=== PATIENT | male | born 1965 | race Caucasian/White ===

== ENCOUNTER 2017-11-22 06:59 | Inpatient (IN) | payer SELFPAY ==
[2017-11-22] VITALS (21 sets, daily range): BP systolic 64–119; BP diastolic 51–82
[~2017-11-22] VITALS: Ht 170.2 cm; Wt 82.6 kg
[~2017-11-22 06:59] MED LIST: ADLT ASA LOW81 MG PO; ATORVASTATIN CA40 MG PO; BAYER LOW81 MG OR; COREG3.125 MG OR; FIORICET OR; GLUCOPHAGE1000 MG OR; HYDROCO/APAP1 TA9 PO; LOPRESSOR25 MG PO; METFORMIN1000 MG PO; PLAVIX75 MG OR; PRILOSEC40 MG OR; TRIMOX500 MG PO; ULTRAM50 M1 PO; WARFARIN SODIUM5 MG PO; ZOCOR40 MG OR
--- NOTE | 2017-11-22 07:00 | NUR ---
PT AMBULATED TO TRIAGE. HR CHECKED, PT TAKEN IMMED TO ER ROOM 9 BY MD AMISHA IN ROOM. IV ESTABISHED. EKG COMPLETED.
--- NOTE | 2017-11-22 07:12 | NUR ---
PATIENT INFORMED OF ADENOSINE ORDER AND SIDE EFFECTS. VERBAL UNDERSTANDING, REPORTS HAVING MED BEFORE. O2 APPLIED AT 2L/MIN. 6 MG OF ADENOSINE GIVEN, TOLERATED WELL. MD AT BEDSIDE.
--- NOTE | 2017-11-22 07:31 | NUR ---
PATIENT INFORMED OF SHOCK BY MED, VERBAL UNDERSTANDING FROM PATIENT. PATIENT SHOCKED WITH 200 JOULES. PATIENT TOLERATED WELL. NO CHANGE IN RHYTHM.
--- NOTE | 2017-11-22 07:34 | NUR ---
PATIENT SHOCKED WITH [address]LES. RHY[address]ANGE TO [address] 125 BPM. PATIENT TOLERATED WELL. ALERT AND ORIENTED X3. WILL CONTINUE TO MONITOR.
[2017-11-22 08:04] LABS: HEMATOCRIT 45.7 % (39.0-50.0); HEMOGLOBIN 16.1 g/dl (14.0-18.0); IMMATURE GRANULOCYTES 0.4 % (0.0-1.0); MEAN CELL VOLUME 89.1 fL CALC (80.0-100.0); MEAN CORPUSCULAR HGB 31.4 pG CALC (26.0-32.0); MEAN CORPUSCULAR HGB CONC 35.2 g/L CALC (32.0-36.0); NEUT# 11.26 thou/uL (1.82-7.42); RED BLOOD COUNT 5.13 mill/uL (4.70-6.10); RED CELL DISTRI WIDTH 12.2 % (11.5-15.5)
--- NOTE | 2017-11-22 08:06 | NUR ---
PATIENT RESTING ON STRETCHER ALERT AND ORIENTED X3. REPORTS CHEST PAIN 2/10 AT THIS TIME. VSS. CALL LIGHT PLACED WITHIN REACH, WILL CONTINUE TO MONITOR.
[2017-11-22 08:14] LABS: INTERNATIONAL NORMALIZED RATIO 1.1 RATIO (0.7-1.3); PROTHROMBIN TIME 12.7 SECONDS (9.0-12.5)
[2017-11-22 08:16] LABS: ANION GAP 20 (6-22 (CALC)); BUN 5 mg/dL (9-20); BUN/CREATININE RATIO 6 (12-20 (CALC)); CARBON DIOXIDE 24 mmol/l (22-30); CHLORIDE 97 mmol/l (95-108); CREATININE 0.8 mg/dL (0.7-1.3); GFR > 60 ML/MIN (>=60 (CALC)); GFR FOR AFR.AMER. > 60 ML/MIN (>=60 (CALC)); SODIUM 138 mmol/l (137-146)
[2017-11-22] MEDS ORDERED: GLIPIZIDE5 MG PO (08:40)
[2017-11-22] MEDS ORDERED: METFORMIN500 MG PO (08:40)
[2017-11-22] MEDS ORDERED: COUMADIN5 MG PO (08:40)
--- NOTE | 2017-11-22 08:50 | NUR ---
AT BEDSIDE TO DISCUSS PLAN TO ADMIT.
--- NOTE | 2017-11-22 09:10 | NUR ---
DR. REID AT BEDSIDE.
--- NOTE | 2017-11-22 09:27 | NUR ---
MARISA MADE TO CALL REPORT, SPOKE TO Eric CASTANEDA, WILL CALL BACK NURSE IN PATIENT ROOM.
--- NOTE | 2017-11-22 09:59 | NUR ---
REPORT GIVEN TO TINY DUBON.
--- NOTE | 2017-11-22 10:25 | NUR ---
PATIENT TRANSPORTED TO ICU 1 WITH O2 AT 2L/MIN IN PLACE, UM SPECIALIST AND DRIP INFUSING- TO CONTINUE IN ICU. BEDSIDE REPORT GIVEN TO LING RN AND TINY SAMUEL. CARE RELINQUISHED.
--- NOTE | 2017-11-22 10:25 | NUR ---
PT ARRIVED TO FLOOR VIA STRETCHER, HAND OFF REPORT RECIEVED VIA BEST RN FROM ED. PT ALERTX3, ABLE TO MAKE NEEDS KNOWN. PT WITH 18G TO RAC WITH IVF AT 100ML/HR AND HEPARIN DRIP @ 950UNITS/HR. 20G WITH K+ @50ML/HR. NO S/S OF INFILTRATE OR REDNESS NOTED AT THIS TIME. PT DENIES CHEST PAIN OR SOB AT THIS TIME. [id number]% ON 02@2LPM VIA N/C. LS CLEAR THROUGHOUT, HR IRREGULAR ON TELEMETRY. SKIN COLOR NO. BSX4 ACTIVE, PT STATES LAST BM 30-18 PRIOR TO COMING TO ER. PERIPHRIAL PULSES WEAK. PT ORIENTED TO UNIT, BED AND CALL LIGHT SYSTEM. PT VERBALIZED UNDERSTANDING. CALL LIGHT IN REACH, MONITORING.
--- NOTE | 2017-11-22 10:40 | NUR ---
PT C/O FEELING WARM, ATTEMPTING TO REMOVE SOCKS AND GOWN. PT BECOMING HYPOTENSIVE AND DIAPHORETIC, SEE TELEMETRY/VS. PT C/O OF PAIN TO R HAND IV SITE, K+ RATE CHANGED TO 25ML/HR. WILL MONITOR AT BS.
--- NOTE | 2017-11-22 10:45 | NUR ---
PT B/P CONFIRMED VIA MANUAL CUFF. IVF BOLUS OF 500ML STARTED. B/P 64/51. CALLED FOR EKG.MONITORING AT BS
--- NOTE | 2017-11-22 10:53 | NUR ---
DR. REID NOTIFIED OF PT CONDITION, VS CONTIUE TO BE UNSTABLE, PT PLACED IN [place] POSITION, EKG DONE. IVF SWITCHED TO R HAND AND K+ TO RAC FOR PT COMFORT. LAB DRAWN AT BS.CONTINUE TO MONITOR AT BS.
--- NOTE | 2017-11-22 11:05 | NUR ---
PT VERBALIZES, PAIN/BURNING TO R HAND DECREASING, PT REMAINS IN [place] POSITION. B/P INCREASING, PT CONTINUES TO DENY SOB AND CHEST PAIN AT THIS TIME. COLOR CONTINUES TO BE NO. PT REMAIN A&0X3, ABLE TO MAKE NEEDS KNOWN.
--- NOTE | 2017-11-22 11:15 | NUR ---
DR. REID AND DAVID LUCAS AT FOR ASSESMENT, ACCUCHECK 176, PT B/P CONTINUES TO ELEVATE, BUT REMAINS HYPOTENSIVE. SA02 95%ON 2LPM/NC. PT COLOR IMPROVING AND IS NO LONGER DIAPHORETIC. WILL CONTINUE TO MONITOR.
--- NOTE | 2017-11-22 11:20 | NUR ---
PT IV HEPARIN CONTINUED 950UNITS/HR. PT RESTING IN BED SUPINE, B/P 92/70. WILL MONITOR
--- NOTE | 2017-11-22 11:35 | NUR ---
IV K+ INFUSION COMPLETED, PT RESTING IN SUPINE POSITION, DENIES PAIN, SOB/CHEST PAIN AT THIS TIME. O2 CONTINUES @2LPM. CALL LIGHT IN REACH. WILL MONITOR.
--- NOTE | 2017-11-22 12:00 | NUR ---
PT NOTIFIED OF POSITIVE TROPONIN LEVEL AND ORDERS TO TRANSFER TO [facility]. PT VERBALIZED UNDERSTANDING. PT ASKED BY COUNTER HAND IF HE WOULD LIKE HIS DAUGHTER NOTIFIED. PT STATED "NO , NOT AT THIS TIME." pT THEN STATED HE WAS NOT SURE HE WANTED TO GO TO [facility] AT THIS TIME." HE WANTED TO THINK ABOUT IT." PT EDUCATED ABOUT THE RISKS OF ELEVATED TROPONIN LEVEL, PT VERBALIZES UNDERSTANDING OF THE RISKS AND CONTINUES TO STATE HE WANTS TO THINK ABOUT IT. PT. LEFT SITTING UP IN BED, BED IN LOWEST POSITION WITH CALL LIGHT IN REACH. WILL CONTINUE TO MONITOR.
--- NOTE | 2017-11-22 12:26 | NUR ---
1226- PT NOTED REMOVING PULSE OX MONITOR UPON ENTERING ROOM, PT STATED HE WAS JUST GOING TO FOLLOW UP WITH DR. BARKER IN 1 WEEK. aGAIN PT EDUCATED ON THE RISK OF LEAVING. PT VERBALIZED UNDERSTANDING AND STILL STATED HIS DESIRE TO LEAVE. 1230- DR. REID AND DAVID LUCAS AT BEDSIDE TO ASSESS AND [place] PT ON THE RISKS OF LEAVING IN UNSTABLE CONDITIONS. DR. REID STATED HE WOULD HOLD OFF ON TRANSFER AND ASKED PT TO STAY IN ICU HERE FOR FURTHER MONITORING, PT STATED HE WANTED TO THINK ON IT. 1236- PT STATED TO WEAPONS AND TACTICS INSTRUCTOR HE WOULD STAY UNTIL 2ND TROPONIN DRAWN AT [id number], THEN HE WAS GOING TO LEAVE. PT MONITORS REINSTATED, BED IN LOWEST POSITION, CALL LIGHT IN REACH. WILL CONTINUE TO MONITOR.
--- NOTE | 2017-11-22 14:00 | NUR ---
PT RESTING IN BED WITH EYES CLOSED, SR WITH OCCASIONAL PVC'S ON TELEMETRY. IV PATENT, NO S/S OF REDNESS OR INFILTRATION, NO S/S OF SOB OR DISTRESS NOTED AT THIS TIME. CALL LIGHT IN REACH. WILL MONITOR.
--- NOTE | 2017-11-22 15:10 | NUR ---
labor contractor at bedside; per script writer request, troponin obtained at this time (early) due to pt expressing wishes to leave; will continue to monitor
--- NOTE | 2017-11-22 15:49 | NUR ---
1549- TROPONIN LEVELS REPORTED TO , AND PT. PT ADVISED TO STAY AND EDUCATED ON THE HIGH RISKS INVOLVED WITH LEAVING. 1554- PT STARTED REMOVING MONITORING EQUIPMENT, IV SITE TO RAC & R HAND DISCONTINUED AFTER AMA SIGN BY PT. PT EDUCATED ON THE RISK OF SUDDEN , PT ADVISED TO RETURN TO ED WITH ANY CHANGE IN STATUS. THIS SENIOR TAX ANALYST ADVISED PT TO NOTIFY SOMEONE TO COME BE WITH HIM, HE STATED HE WOULD. 1555- PT LEFT ICU BED #1 AMA.
== END 2017-11-22 15:55 | disposition left against medical advice (07) | DRG 310 ==
LOC: ED 06:59 → ED-I 08:22 → ED 08:45 → ICU 08:46
PROVIDERS: Family Medicine; ADMIT Internal Medicine; ATTEND Internal Medicine
PROC: 5A2204Z Restoration of Cardiac Rhythm, Single (ICD-10-PCS; principal; 2017-11-22)
DX: I48.91 Unspecified atrial fibrillation (principal); E83.42 Hypomagnesemia; I48.92 Unspecified atrial flutter; E87.6 Hypokalemia; E11.9 Type 2 diabetes mellitus without complications; F17.210 Nicotine dependence, cigarettes, uncomplicated; I25.10 Atherosclerotic heart disease of native coronary artery without angina pectoris; R74.8 Abnormal levels of other serum enzymes; Z91.14 Patient's other noncompliance with medication regimen; Z95.5 Presence of coronary angioplasty implant and graft; Z79.01 Long term (current) use of anticoagulants
CPT/HCPCS: J2060

== ENCOUNTER 2018-03-11 19:14 | Inpatient (IN) | payer SELFPAY ==
[~2018-03-11] VITALS: Ht 170.2 cm; Wt 85.5 kg
[~2018-03-11 19:14] MED LIST changes: +COUMADIN5 MG PO; +GLIPIZIDE5 MG PO; +METFORMIN500 MG PO
[2018-03-11 19:51] LABS: HEMATOCRIT 46.2 % (39.0-50.0); HEMOGLOBIN 16.4 g/dl (14.0-18.0); IMMATURE GRANULOCYTES 0.4 % (0.0-5.0); MEAN CELL VOLUME 88.7 fL CALC (80.0-100.0); MEAN CORPUSCULAR HGB 31.5 pG CALC (26.0-32.0); MEAN CORPUSCULAR HGB CONC 35.5 g/L CALC (32.0-36.0); NEUT# 6.01 thou/uL (1.82-7.42); RED BLOOD COUNT 5.21 mill/uL (4.70-6.10); RED CELL DISTRI WIDTH 12.1 % (11.5-15.5)
[2018-03-11 20:09] LABS: ALKALINE PHOSPHATASE 114 u/l (38-126); BILIRUBIN, TOTAL 0.6 mg/dL (0.0-1.4); BUN 7 mg/dL (9-20); BUN/CREATININE RATIO 6 (12-20 (CALC)); CARBON DIOXIDE 23 mmol/l (22-30); CHLORIDE 94 mmol/l (95-108); CREATININE 1.1 mg/dL (0.7-1.3); ETHYL ALCOHOL 42 mg/dl (0-30); GFR > 60 ML/MIN (>=60 (CALC)); GFR FOR AFR.AMER. > 60 ML/MIN (>=60 (CALC)); SGPT/ALT 39 u/l (21-72); SODIUM 135 mmol/l (137-146); TOTAL PROTEIN 8.4 g/dL (6.3-8.2)
[2018-03-11 20:16] LABS: ANION GAP 22 (6-22 (CALC)); POTASSIUM 3.8 mmol/l (3.5-5.1); SGOT/AST 35 u/l (17-59)
[2018-03-11 20:17] LABS: ACT PARTIAL THROMBO TIME 27.5 SECONDS (20.0-32.5); D-DIMER 0.19 mg/L (0.19-0.60); INTERNATIONAL NORMALIZED RATIO 1.1 RATIO (0.7-1.3); PROTHROMBIN TIME 12.8 SECONDS (9.0-12.5)
[2018-03-11 20:20] LABS: MYOGLOBIN 85 ng/mL (0 - 121)
[2018-03-11 23:05] VITALS: BP 99/70
[2018-03-11 23:30] VITALS: BP 95/66
[2018-03-12] VITALS: BP 109/77
[2018-03-12] LABS: URINE BILIRUBIN - DIPSTICK NEGATIVE (NEGATIVE); URINE BLOOD DIPSTICK NEGATIVE (NEGATIVE); URINE COLOR YELLOW; URINE GLUCOSE - DIPSTICK >=1000 mg/dL (NEGATIVE); URINE KETONE NEGATIVE (NEGATIVE); URINE LEUK ESTERASE NEGATIVE (NEGATIVE); URINE NITRITE - DIPSTICK NEGATIVE (Negative); URINE PROTEIN - DIPSTICK TRACE mg/dL (NEG-TRACE); URINE SPECIFIC GRAVITY <=1.005; URINE UROBILINOGEN - DIPSTICK 0.2 E.U./dL (0.2)
[2018-03-12 00:01] LABS: BARBITURATES NEGATIVE (NEGATIVE); COCAINE POSITIVE (NEGATIVE); METHADONE NEGATIVE (NEGATIVE); OXCYCODONE NEGATIVE (NEGATIVE); TETRAHYDROCANNABIONOL NEGATIVE (NEGATIVE); TRICYLIC ANTIDEPRESSANTS NEGATIVE (NEGATIVE); URINE CLARITY CLEAR
[2018-03-12 01:00] VITALS: BP 116/68
[2018-03-12 02:00] VITALS: BP 102/70
[2018-03-12 03:00] VITALS: BP 103/68
[2018-03-12 04:00] VITALS: BP 97/61
[2018-03-12 05:00] VITALS: BP 97/61
[2018-03-12 05:39] LABS: HEMATOCRIT 38.7 % (39.0-50.0); HEMOGLOBIN 13.6 g/dl (14.0-18.0); MEAN CELL VOLUME 90.6 fL CALC (80.0-100.0); MEAN CORPUSCULAR HGB 31.9 pG CALC (26.0-32.0); MEAN CORPUSCULAR HGB CONC 35.1 g/L CALC (32.0-36.0); RED BLOOD COUNT 4.27 mill/uL (4.70-6.10); RED CELL DISTRI WIDTH 12.2 % (11.5-15.5)
[2018-03-12 05:58] LABS: ALKALINE PHOSPHATASE 87 u/l (38-126); BILIRUBIN, TOTAL 0.5 mg/dL (0.0-1.4); BUN 7 mg/dL (9-20); BUN/CREATININE RATIO 9 (12-20 (CALC)); CARBON DIOXIDE 27 mmol/l (22-30); CREATININE 0.8 mg/dL (0.7-1.3); GFR > 60 ML/MIN (>=60 (CALC)); GFR FOR AFR.AMER. > 60 ML/MIN (>=60 (CALC)); POTASSIUM 3.9 mmol/l (3.5-5.1); SGOT/AST 21 u/l (17-59); SGPT/ALT 30 u/l (21-72); SODIUM 140 mmol/l (137-146)
[2018-03-12 06:28] LABS: ALBUMIN 3.3 g/dL (3.2-5.0); ANION GAP 10 (6-22 (CALC)); CHLORIDE 107 mmol/l (95-108); TOTAL PROTEIN 5.7 g/dL (6.3-8.2)
== END 2018-03-12 06:00 | disposition left against medical advice (07) | DRG 310 ==
LOC: ED 19:14 → ED-I 21:00 → ED 21:28 → ICU 21:29
PROVIDERS: Family Medicine; ADMIT General Practice; ATTEND General Practice
DX: I48.92 Unspecified atrial flutter (principal); F17.210 Nicotine dependence, cigarettes, uncomplicated; E11.9 Type 2 diabetes mellitus without complications; I51.9 Heart disease, unspecified

== ENCOUNTER 2018-05-18 02:06 | Emergency (ER) | payer SELFPAY ==
[~2018-05-18] VITALS: Ht 170.2 cm; Wt 85.5 kg
[2018-05-18 02:29] LABS: HEMATOCRIT 42.8 % (39.0-50.0); IMMATURE GRANULOCYTES 0.7 % (0.0-5.0); MEAN CELL VOLUME 89.4 fL CALC (80.0-100.0); MEAN CORPUSCULAR HGB 31.3 pG CALC (26.0-32.0); NEUT# 3.94 thou/uL (1.82-7.42); RED BLOOD COUNT 4.79 mill/uL (4.70-6.10); RED CELL DISTRI WIDTH 12.3 % (11.5-15.5)
[2018-05-18 02:38] LABS: ALBUMIN 4.7 g/dL (3.2-5.0); ALKALINE PHOSPHATASE 98 u/l (38-126); ANION GAP 20 (6-22 (CALC)); BILIRUBIN, TOTAL 0.7 mg/dL (0.0-1.4); BUN 3 mg/dL (9-20); BUN/CREATININE RATIO 3 (12-20 (CALC)); CARBON DIOXIDE 22 mmol/l (22-30); CHLORIDE 94 mmol/l (95-108); CREATININE 0.9 mg/dL (0.7-1.3); GFR > 60 ML/MIN (>=60 (CALC)); GFR FOR AFR.AMER. > 60 ML/MIN (>=60 (CALC)); POTASSIUM 2.8 mmol/l (3.5-5.1); PROTHROMBIN TIME 10.9 SECONDS (9.0-12.5); SGOT/AST 42 u/l (17-59); SODIUM 134 mmol/l (137-146); TOTAL PROTEIN 7.6 g/dL (6.3-8.2)
[2018-05-18 02:47] LABS: MYOGLOBIN 152 ng/mL (0 - 121)
[2018-05-18 03:05] VITALS: BP 94/59
[2018-05-18 03:27] LABS: URINE BILIRUBIN - DIPSTICK NEGATIVE (NEGATIVE); URINE BLOOD DIPSTICK LARGE (NEGATIVE); URINE COLOR YELLOW; URINE GLUCOSE - DIPSTICK >=1000 mg/dL (NEGATIVE); URINE KETONE TRACE mg/dL (NEGATIVE); URINE LEUK ESTERASE NEGATIVE (NEGATIVE); URINE NITRITE - DIPSTICK NEGATIVE (Negative); URINE PH 6.5 (4.5-8.0); URINE PROTEIN - DIPSTICK 100 mg/dL (NEG-TRACE); URINE UROBILINOGEN - DIPSTICK 0.2 E.U./dL (0.2)
[2018-05-18 03:32] LABS: BARBITURATES NEGATIVE (NEGATIVE); COCAINE NEGATIVE (NEGATIVE); METHADONE NEGATIVE (NEGATIVE); OXCYCODONE NEGATIVE (NEGATIVE); TETRAHYDROCANNABIONOL NEGATIVE (NEGATIVE); TRICYLIC ANTIDEPRESSANTS NEGATIVE (NEGATIVE); URINE CLARITY CLEAR
[2018-05-18 03:41] LABS: URINE BACTERIA FEW hpf; URINE SQUAMOUS EPITHELIAL CELL FEW EPI/hpf (0-FEW)
== END 2018-05-18 03:48 | disposition short-term general hospital (02) | DRG 298 ==
LOC: EDBD 02:06 → ED 02:06
PROVIDERS: Emergency Medicine
PROC: 0BH17EZ Insertion of Endotracheal Airway into Trachea, Via Natural or Artificial Opening (ICD-10-PCS; principal; 2018-05-18)
PROC: 0T9B70Z Drainage of Bladder with Drainage Device, Via Natural or Artificial Opening (ICD-10-PCS; 2018-05-18)
DX: I46.9 Cardiac arrest, cause unspecified (principal); R07.9 Chest pain, unspecified; R00.0 Tachycardia, unspecified
CPT/HCPCS: J0282

== ENCOUNTER 2020-12-21 02:56 | Emergency (ER) | payer MEDICAID ==
[~2020-12-21] VITALS: Ht 170.2 cm; Wt 98.0 kg
[2020-12-21] MEDS ORDERED: AMOXICILLIN500 MG PO (03:33)
[2020-12-21] MEDS ORDERED: PERCOCET 5/325M1 TAB PO (03:33)
[2020-12-21 04:00] VITALS: BP 162/70
== END 2020-12-21 04:00 | disposition home or self-care (01) ==
LOC: ED 02:56
DX: K04.7 Periapical abscess without sinus (principal); K02.9 Dental caries, unspecified; M84.68XA Pathological fracture in other disease, other site, initial encounter for fracture; E11.9 Type 2 diabetes mellitus without complications; I10 Essential (primary) hypertension; Z79.4 Long term (current) use of insulin

== ENCOUNTER 2021-03-28 11:42 | Inpatient (IN) | payer MEDICAID ==
[~2021-03-28] VITALS: Ht 170.2 cm; Wt 78.0 kg
[~2021-03-28 11:42] MED LIST changes: +AMOXICILLIN500 MG PO; +PERCOCET 5/325M1 TAB PO
[2021-03-28 12:33] LABS: HEMATOCRIT 48.5 % (39.0-50.0); HEMOGLOBIN 16.6 g/dl (14.0-18.0); IMMATURE GRANULOCYTES 0.1 % (0.0-5.0); MEAN CELL VOLUME 85.8 fL CALC (80.0-100.0); MEAN CORPUSCULAR HGB 29.4 pG CALC (26.0-32.0); MEAN CORPUSCULAR HGB CONC 34.2 g/dL CAL (32.0-36.0); NEUT# 7.66 thou/uL (1.82-7.42); RED BLOOD COUNT 5.65 mill/uL (4.70-6.10); RED CELL DISTRI WIDTH 11.9 % (11.5-15.5)
[2021-03-28 12:44] LABS: ALBUMIN 4.4 g/dL (3.2-5.0); ALKALINE PHOSPHATASE 122 u/l (38-126); ANION GAP 16 (6-22 (CALC)); BILIRUBIN, TOTAL 0.7 mg/dL (0.0-1.4); BUN 8 mg/dL (9-20); BUN/CREATININE RATIO 8 (12-20 (CALC)); CARBON DIOXIDE 27 mmol/l (22-30); CHLORIDE 93 mmol/l (95-108); CREATININE 0.9 mg/dL (0.7-1.3); GFR > 60 ML/MIN (>=60 (CALC)); GFR FOR AFR.AMER. > 60 ML/MIN (>=60 (CALC)); SGOT/AST 17 u/l (17-59); SODIUM 133 mmol/l (137-146); TOTAL PROTEIN 7.7 g/dL (6.3-8.2)
[2021-03-28 12:50] LABS: POTASSIUM 2.9 mmol/l (3.5-5.1)
[2021-03-29 05:26] LABS: HEMATOCRIT 47.3 % (39.0-50.0); HEMOGLOBIN 15.8 g/dl (14.0-18.0); MEAN CELL VOLUME 88.1 fL CALC (80.0-100.0); MEAN CORPUSCULAR HGB 29.4 pG CALC (26.0-32.0); MEAN CORPUSCULAR HGB CONC 33.4 g/dL CAL (32.0-36.0); RED BLOOD COUNT 5.37 mill/uL (4.70-6.10); RED CELL DISTRI WIDTH 11.9 % (11.5-15.5)
[2021-03-29 06:57] LABS: ANION GAP 12 (6-22 (CALC)); BUN 10 mg/dL (9-20); BUN/CREATININE RATIO 14 (12-20 (CALC)); CARBON DIOXIDE 25 mmol/l (22-30); CHLORIDE 103 mmol/l (95-108); CREATININE 0.7 mg/dL (0.7-1.3); GFR > 60 ML/MIN (>=60 (CALC)); GFR FOR AFR.AMER. > 60 ML/MIN (>=60 (CALC)); SODIUM 136 mmol/l (137-146)
[2021-03-29 06:58] LABS: POTASSIUM 4.2 mmol/l (3.5-5.1)
[2021-03-29 07:00] VITALS: BP 135/88
[2021-03-29] MEDS ORDERED: SPIRONOLACTONE25 MG PO (12:59)
[2021-03-29] MEDS ORDERED: BUPROPN HCL300 MG PO (13:00)
[2021-03-29] MEDS ORDERED: ATORVASTATIN CA80 MG PO (13:00)
[2021-03-29] MEDS ORDERED: CLOPIDOGREL75 MG PO (13:01)
[2021-03-29] MEDS ORDERED: LEVEMIR100 UNIT SC (13:02)
[2021-03-29] MEDS ORDERED: TOPROL XL50 MG PO (13:03)
[2021-03-29] MEDS ORDERED: LOSARTAN POTASS50 MG PO (13:03)
[2021-03-29] MEDS ORDERED: METFORMIN HYD1000 MG PO (13:05)
[2021-03-29] MEDS ORDERED: PROTONIX40 M2 PO (13:06)
[2021-03-29 20:18] VITALS: BP 164/96
[2021-03-30] VITALS: BP 113/79
[2021-03-30 04:00] VITALS: BP 112/77
[2021-03-30 05:25] LABS: MEAN CORPUSCULAR HGB 29.6 pG CALC (26.0-32.0); MEAN CORPUSCULAR HGB CONC 34.1 g/dL CAL (32.0-36.0); RED BLOOD COUNT 5.06 mill/uL (4.70-6.10); RED CELL DISTRI WIDTH 11.7 % (11.5-15.5)
[2021-03-30 06:11] LABS: ANION GAP 14 (6-22 (CALC)); BUN 16 mg/dL (9-20); BUN/CREATININE RATIO 21 (12-20 (CALC)); CARBON DIOXIDE 24 mmol/l (22-30); CHLORIDE 101 mmol/l (95-108); CREATININE 0.8 mg/dL (0.7-1.3); GFR > 60 ML/MIN (>=60 (CALC)); GFR FOR AFR.AMER. > 60 ML/MIN (>=60 (CALC)); MAGNESIUM 1.7 mg/dL (1.6-2.3); SODIUM 134 mmol/l (137-146)
[2021-03-30 07:52] VITALS: BP 155/92
[2021-03-30 11:07] VITALS: BP 115/70
[2021-03-30 14:20] VITALS: BP 123/79
[2021-03-30 19:00] VITALS: BP 108/69
[2021-03-31] VITALS: BP 116/71
[2021-03-31 04:00] VITALS: BP 125/83
[2021-03-31 05:39] LABS: HEMATOCRIT 45.6 % (39.0-50.0); HEMOGLOBIN 15.6 g/dl (14.0-18.0); MEAN CELL VOLUME 86.5 fL CALC (80.0-100.0); MEAN CORPUSCULAR HGB 29.6 pG CALC (26.0-32.0); MEAN CORPUSCULAR HGB CONC 34.2 g/dL CAL (32.0-36.0); RED BLOOD COUNT 5.27 mill/uL (4.70-6.10)
[2021-03-31 05:48] LABS: ANION GAP 12 (6-22 (CALC)); BUN 15 mg/dL (9-20); BUN/CREATININE RATIO 20 (12-20 (CALC)); CARBON DIOXIDE 25 mmol/l (22-30); CHLORIDE 102 mmol/l (95-108); CREATININE 0.8 mg/dL (0.7-1.3); GFR > 60 ML/MIN (>=60 (CALC)); GFR FOR AFR.AMER. > 60 ML/MIN (>=60 (CALC)); MAGNESIUM 1.7 mg/dL (1.6-2.3); SODIUM 135 mmol/l (137-146)
[2021-03-31 07:50] VITALS: BP 109/65
[2021-03-31 08:05] VITALS: BP 127/81
[2021-03-31 11:51] VITALS: BP 100/66
[2021-03-31] MEDS ORDERED: AMIODARONE200 MG PO (12:36)
== END 2021-03-31 15:11 | DRG 310 ==
LOC: ED 11:42 → ED-I 13:21 → ED 15:01 → ED-I 15:02 → MS2 21:29 → ED-I 21:30 → MS2 03-29 21:02
PROVIDERS: Family Medicine; ADMIT Hospitalist; ATTEND Hospitalist
DX: I47.2 Ventricular tachycardia (principal); E87.6 Hypokalemia; E83.42 Hypomagnesemia; I10 Essential (primary) hypertension; E11.9 Type 2 diabetes mellitus without complications; I48.91 Unspecified atrial fibrillation; I25.10 Atherosclerotic heart disease of native coronary artery without angina pectoris; F17.200 Nicotine dependence, unspecified, uncomplicated; R41.3 Other amnesia; T46.2X6A Underdosing of other antidysrhythmic drugs, initial encounter; Z91.138 Patient's unintentional underdosing of medication regimen for other reason; Z79.4 Long term (current) use of insulin; Z60.2 Problems related to living alone; Z95.5 Presence of coronary angioplasty implant and graft; Z95.810 Presence of automatic (implantable) cardiac defibrillator; Z20.822 Contact with and (suspected) exposure to COVID-19
CPT/HCPCS: J0282; J1650; J3475

== ENCOUNTER 2021-03-31 20:37 | Emergency (ER) | payer MEDICAID ==
[~2021-03-31] VITALS: Ht 170.2 cm; Wt 75.0 kg
[~2021-03-31 20:37] MED LIST changes: +AMIODARONE200 MG PO; +ATORVASTATIN CA80 MG PO; +BUPROPN HCL300 MG PO; +CLOPIDOGREL75 MG PO; +LEVEMIR100 UNIT SC; +LOSARTAN POTASS50 MG PO; +METFORMIN HYD1000 MG PO; +PROTONIX40 M2 PO; +SPIRONOLACTONE25 MG PO; +TOPROL XL50 MG PO
[2021-03-31 21:18] LABS: HEMATOCRIT 44.9 % (39.0-50.0); HEMOGLOBIN 15.2 g/dl (14.0-18.0); IMMATURE GRANULOCYTES 0.1 % (0.0-5.0); MEAN CELL VOLUME 86.8 fL CALC (80.0-100.0); MEAN CORPUSCULAR HGB 29.4 pG CALC (26.0-32.0); MEAN CORPUSCULAR HGB CONC 33.9 g/dL CAL (32.0-36.0); NEUT# 7.38 thou/uL (1.82-7.42); RED BLOOD COUNT 5.17 mill/uL (4.70-6.10)
[2021-03-31 21:33] LABS: ALBUMIN 4.2 g/dL (3.2-5.0); ALKALINE PHOSPHATASE 77 u/l (38-126); ANION GAP 13 (6-22 (CALC)); BILIRUBIN, TOTAL 0.8 mg/dL (0.0-1.4); BUN 16 mg/dL (9-20); BUN/CREATININE RATIO 17 (12-20 (CALC)); CARBON DIOXIDE 25 mmol/l (22-30); CHLORIDE 99 mmol/l (95-108); CREATININE 0.9 mg/dL (0.7-1.3); GFR > 60 ML/MIN (>=60 (CALC)); GFR FOR AFR.AMER. > 60 ML/MIN (>=60 (CALC)); LIPASE 54 u/l (23-300); POTASSIUM 4.5 mmol/l (3.5-5.1); SODIUM 133 mmol/l (137-146); TOTAL PROTEIN 7.6 g/dL (6.3-8.2)
[2021-03-31 21:35] LABS: SGOT/AST 30 u/l (17-59)
[2021-03-31 22:18] VITALS: BP 115/73
== END 2021-03-31 22:25 | disposition home or self-care (01) ==
LOC: ED 20:37
DX: E11.65 Type 2 diabetes mellitus with hyperglycemia (principal); F41.9 Anxiety disorder, unspecified; I10 Essential (primary) hypertension; I48.91 Unspecified atrial fibrillation; Z95.810 Presence of automatic (implantable) cardiac defibrillator; Z79.4 Long term (current) use of insulin; Z60.2 Problems related to living alone

== ENCOUNTER 2021-04-02 00:18 | Emergency (ER) | payer MEDICAID ==
[~2021-04-02] VITALS: Ht 170.2 cm; Wt 75.0 kg
[2021-04-02 02:30] VITALS: BP 131/71
== END 2021-04-02 02:30 | disposition home or self-care (01) ==
LOC: ED 00:18
DX: F41.9 Anxiety disorder, unspecified (principal); E11.9 Type 2 diabetes mellitus without complications; I10 Essential (primary) hypertension; I48.91 Unspecified atrial fibrillation; Z79.4 Long term (current) use of insulin; Z95.810 Presence of automatic (implantable) cardiac defibrillator

== ENCOUNTER 2022-04-20 18:42 | Emergency (ER) | payer MEDICAID ==
[2022-04-20] VITALS (7 sets, daily range): BP systolic 107–122; BP diastolic 73–83
[~2022-04-20] VITALS: Ht 170.2 cm; Wt 77.0 kg
[2022-04-20 19:38] LABS: HEMATOCRIT 45.5 % (39.0-50.0); HEMOGLOBIN 15.3 g/dl (14.0-18.0); IMMATURE GRANULOCYTES 0.1 % (0.0-5.0); MEAN CELL VOLUME 86.7 fL CALC (80.0-100.0); MEAN CORPUSCULAR HGB 29.1 pG CALC (26.0-32.0); MEAN CORPUSCULAR HGB CONC 33.6 g/dL CAL (32.0-36.0); NEUT# 3.95 thou/uL (1.82-7.42); RED BLOOD COUNT 5.25 mill/uL (4.70-6.10); RED CELL DISTRI WIDTH 13.6 % (11.5-15.5)
[2022-04-20 19:48] LABS: ALBUMIN 4.2 g/dL (3.2-5.0); ALKALINE PHOSPHATASE 76 u/l (38-126); BILIRUBIN, TOTAL 0.6 mg/dL (0.0-1.4); BUN 12 mg/dL (9-20); BUN/CREATININE RATIO 13 (12-20 (CALC)); CHLORIDE 100 mmol/l (95-108); CREATININE 0.9 mg/dL (0.7-1.3); GFR FOR AFR.AMER. > 60 ML/MIN (>=60 (CALC)); GFR OTHER RACES > 60 ML/MIN (>=60 (CALC)); POTASSIUM 3.9 mmol/l (3.5-5.1); SODIUM 136 mmol/l (137-146); TOTAL PROTEIN 7.6 g/dL (6.3-8.2)
[2022-04-20 19:52] LABS: ANION GAP 16 (6-22 (CALC)); CARBON DIOXIDE 24 mmol/l (22-30); SGOT/AST 30 u/l (17-59)
== END 2022-04-20 20:15 | disposition home or self-care (01) ==
LOC: ED 18:42
PROVIDERS: Nurse Practitioner
DX: R60.0 Localized edema (principal); I11.0 Hypertensive heart disease with heart failure; I50.9 Heart failure, unspecified; I25.10 Atherosclerotic heart disease of native coronary artery without angina pectoris; K21.9 Gastro-esophageal reflux disease without esophagitis; E78.5 Hyperlipidemia, unspecified; I48.91 Unspecified atrial fibrillation; Z95.810 Presence of automatic (implantable) cardiac defibrillator; Z79.84 Long term (current) use of oral hypoglycemic drugs; Z79.4 Long term (current) use of insulin

== ENCOUNTER 2023-04-21 12:20 | Observation (INO) | payer MEDICAID ==
[2023-04-21] VITALS (22 sets, daily range): BP systolic 93–121; BP diastolic 52–82
[~2023-04-21] VITALS: Ht 170.2 cm; Wt 74.0 kg
[~2023-04-21 12:20] MED LIST changes: +JARDIANCE25 MG; +TRULICITY0.75 MG/0.
[2023-04-22 00:11] VITALS: BP 106/67
[2023-04-22 04:21] VITALS: BP 93/58
[2023-04-22 07:10] VITALS: BP 106/60
[2023-04-22 08:03] LABS: ALBUMIN 3.6 g/dL (3.2-5.0); ALKALINE PHOSPHATASE 92 u/l (38-126); ANION GAP 12 (6-22 (CALC)); BILIRUBIN, TOTAL 0.6 mg/dL (0.2-1.3); BUN 15 mg/dL (9-20); BUN/CREATININE RATIO 18 (12-20 (CALC)); CARBON DIOXIDE 24 mmol/l (22-30); CHLORIDE 105 mmol/l (95-108); CREATININE 0.8 mg/dL (0.7-1.3); GFR FOR AFR.AMER. > 60 ML/MIN (>=60 (CALC)); GFR OTHER RACES > 60 ML/MIN (>=60 (CALC)); POTASSIUM 3.9 mmol/l (3.5-5.1); SGOT/AST 18 u/l (17-59); SODIUM 137 mmol/l (137-146)
[2023-04-22 08:15] LABS: TOTAL PROTEIN 6.2 g/dL (6.3-8.2)
[2023-04-22 10:55] VITALS: BP 108/67
[2023-04-22 15:04] VITALS: BP 138/51
== END 2023-04-22 17:00 | disposition left against medical advice (07) ==
LOC: ED 12:20 → ED-I 12:31 → ED 12:31 → ED-I 12:40 → MS2 16:30
PROVIDERS: ADMIT Internal Medicine; ATTEND Internal Medicine
DX: I49.01 Ventricular fibrillation (principal); I10 Essential (primary) hypertension; E11.9 Type 2 diabetes mellitus without complications; I48.91 Unspecified atrial fibrillation; I25.10 Atherosclerotic heart disease of native coronary artery without angina pectoris; I25.5 Ischemic cardiomyopathy; F17.210 Nicotine dependence, cigarettes, uncomplicated; Z79.84 Long term (current) use of oral hypoglycemic drugs; Z95.810 Presence of automatic (implantable) cardiac defibrillator; Z91.148 Patient's other noncompliance with medication regimen for other reason; Z91.199 Patient's noncompliance with other medical treatment and regimen due to unspecified reason
CPT/HCPCS: G0378; J1650

== ENCOUNTER 2023-04-29 10:33 | Emergency (ER) | payer MEDICAID ==
[~2023-04-29] VITALS: Ht 170.2 cm; Wt 84.0 kg
[2023-04-29 11:16] LABS: BASO% 0.5 % (0-3); EOS% 1.7 % (0-8); HEMATOCRIT 49.4 % (39.0-50.0); HEMOGLOBIN 16.5 g/dl (14.0-18.0); IMMATURE GRANULOCYTES 0.1 % (0.0-5.0); LYMPH% 33.4 % (15-41); MEAN CORPUSCULAR HGB 29.7 pG CALC (26.0-32.0); MEAN CORPUSCULAR HGB CONC 33.4 g/dL CAL (32.0-36.0); MONO% 6.8 % (2-13); NEUT# 5.77 thou/uL (1.82-7.42); NEUT% 57.5 % (42-76); RED BLOOD COUNT 5.55 mill/uL (4.70-6.10); RED CELL DISTRI WIDTH 12.3 % (11.5-15.5)
[2023-04-29 11:25] LABS: ALBUMIN 4.3 g/dL (3.2-5.0); ALKALINE PHOSPHATASE 107 u/l (38-126); ANION GAP 16 (6-22 (CALC)); BILIRUBIN, TOTAL 0.7 mg/dL (0.2-1.3); BUN 8 mg/dL (9-20); BUN/CREATININE RATIO 9 (12-20 (CALC)); CARBON DIOXIDE 24 mmol/l (22-30); CHLORIDE 103 mmol/l (95-108); CREATININE 0.8 mg/dL (0.7-1.3); GFR FOR AFR.AMER. > 60 ML/MIN (>=60 (CALC)); GFR OTHER RACES > 60 ML/MIN (>=60 (CALC)); POTASSIUM 3.6 mmol/l (3.5-5.1); SGOT/AST 23 u/l (17-59); SODIUM 139 mmol/l (137-146)
[2023-04-29 11:27] LABS: TOTAL PROTEIN 8.1 g/dL (6.3-8.2)
[2023-04-29 12:29] LABS: URINE BILIRUBIN - DIPSTICK Negative (NEGATIVE); URINE BLOOD DIPSTICK Negative (NEGATIVE); URINE COLOR Yellow; URINE GLUCOSE - DIPSTICK 500 mg/dL (NEGATIVE); URINE KETONE 40 mg/dL (NEGATIVE); URINE LEUK ESTERASE Negative (NEGATIVE); URINE NITRITE - DIPSTICK Negative (Negative); URINE PH 5.5 (4.5-8.0); URINE PROTEIN - DIPSTICK Negative (NEG-TRACE)
[2023-04-29] MEDS ORDERED: CORDARONE/200 MG/TAB PO (15:05)
[2023-04-29 15:25] VITALS: BP 130/90
== END 2023-04-29 15:32 | disposition home or self-care (01) ==
LOC: ED 10:33
PROVIDERS: Family Medicine
DX: I49.01 Ventricular fibrillation (principal); I10 Essential (primary) hypertension; E11.9 Type 2 diabetes mellitus without complications; I48.91 Unspecified atrial fibrillation; F17.200 Nicotine dependence, unspecified, uncomplicated; T46.2X6A Underdosing of other antidysrhythmic drugs, initial encounter; Z91.128 Patient's intentional underdosing of medication regimen for other reason; Z79.84 Long term (current) use of oral hypoglycemic drugs; Z79.4 Long term (current) use of insulin; Z95.810 Presence of automatic (implantable) cardiac defibrillator

== ENCOUNTER 2023-08-05 12:53 | Emergency (ER) | payer MEDICAID ==
[~2023-08-05] VITALS: Ht 170.2 cm; Wt 68.0 kg
[~2023-08-05 12:53] MED LIST changes: +CORDARONE/200 MG/TAB PO
[2023-08-05 13:01] VITALS: BP 144/95
[2023-08-05 13:45] VITALS: BP 157/69
[2023-08-05 14:00] VITALS: BP 130/83
[2023-08-05 14:23] VITALS: BP 130/83
== END 2023-08-05 14:23 ==
LOC: ED 12:53
DX: I49.01 Ventricular fibrillation (principal); I47.20 Ventricular tachycardia, unspecified; E11.9 Type 2 diabetes mellitus without complications; I10 Essential (primary) hypertension; I48.91 Unspecified atrial fibrillation; F17.200 Nicotine dependence, unspecified, uncomplicated; Z79.84 Long term (current) use of oral hypoglycemic drugs; Z95.810 Presence of automatic (implantable) cardiac defibrillator
CPT/HCPCS: J0282